=== PATIENT | female | born 1930 | race American Indian/Alaskan Native ===

== ENCOUNTER 2018-09-08 10:20 | Emergency (ER) | payer MEDICARE ==
[2018-09-08] MEDS ORDERED: KEPPRA 1,000 MG/NS 0.75% 100ML 1,000 MG/100 ML BAG IV ONE (10:55)
--- NOTE | 2018-09-08 11:10 | Emergency Department Report ---
HPI - General Chief Complaint: Seizure Time Seen by Provider: 09/08/18 10:49 - HPI HPI: A 88-year-old -[place] female presents to the emergency department from home via EMS after the patient exhibited some seizure-like activity. The patient has a history of dementia, CVA with left-sided deficits, CHF, GERD, hypertension, seizure disorder and hypothyroidism. Family, who is bedside, says that the patient was having some type of convulsions but that she intermittently was talking during it. One of her daughter says that this happened 4 times in a row with only a few seconds in between them. There did not appear to be any postictal period as she was immediately back to baseline with stopped. Patient is on 750 mg of Keppra twice daily but did not have her morning dose because she had not yet eaten breakfast. Patient was last year in late June after she had increased left-sided weakness. The family also says that she has been at [facility] in the past few months for a fall and had a negative CT scan of the head done at that time. She did not take anything and did not receive anything for her symptoms in route prior to arrival. ED Past Medical Hx - Past Medical History Previous Medical History?: Yes Hx Hypertension: Yes Hx CVA: Yes Hx Congestive Heart Failure: Yes Hx GERD: Yes Hx Arthritis: Yes (rheumatoid arthritis) Hx Seizures: Yes Hx Dementia: Yes Additional medical history: Hypothyroidism, stroke, TIA, Alzheimer's disease, CHF, neuropathy of the feet - Surgical History Past Surgical History?: No - Social History Smoking Status: Former Smoker Substance Use Type: None - Medications Home Medications: Home Medications Medication Instructions Recorded Confirmed Last Taken Type Aspirin EC [Aspirin Enteric Coated 325 mg PO QDAY tablet 07/08/18 09/08/18 Unknown Rx TAB] Famotidine [Pepcid] 20 mg PO BID tablet 07/08/18 09/08/18 Unknown Rx levETIRAcetam [Keppra TAB] 750 mg PO BID tablet 07/08/18 09/08/18 Unknown Rx Valsartan 1 tab PO DAILY 09/08/18 09/08/18 Unknown History ED Review of Systems ROS: Stated complaint: SEIZURE Other details as noted in HPI Constitutional: denies: chills, fever Eyes: denies: eye pain, vision change ENT: denies: ear pain, throat pain Respiratory: denies: cough, shortness of breath Cardiovascular: denies: chest pain, palpitations Gastrointestinal: denies: vomiting, diarrhea Genitourinary: denies: dysuria, discharge Musculoskeletal: denies: back pain, arthralgia Skin: denies: rash, lesions Neurological: other (seizure-like activity, convulsions). denies: numbness Physical Exam - Physical Exam Vital Signs: Vital Signs 09/08/18 10:40 Temperature 98.2 F Pulse Rate 58 L Respiratory 17 Rate Blood Pressure 161/62 Blood Pressure 161/62 [Right] O2 Sat by Pulse 96 Oximetry Physical Exam: GENERAL: The patient is well-developed well-nourished. HEENT: Normocephalic. Atraumatic. Patient has moist mucous membranes. EYES: Extraocular motions are intact. Pupils are equal and reactive to light bilaterally. NECK: Supple. Trachea is midline. CHEST/LUNGS: Clear to auscultation. There is no respiratory distress noted. HEART/CARDIOVASCULAR: Regular. There is no tachycardia. There is no obvious murmur. ABDOMEN: Abdomen is soft, nontender. Patient has normal bowel sounds. There is no abdominal distention. SKIN: Skin is warm and dry. NEURO: The patient is awake, alert, and cooperative. The patient has normal speech. Cranial nerves II through XII grossly intact. MUSCULOSKELETAL: There is no tenderness or deformity. There is no evidence of acute injury. ED Course Vital Signs 09/08/18 10:40 Temperature 98.2 F Pulse Rate 58 L Respiratory 17 Rate Blood Pressure 161/62 Blood Pressure 161/62 [Right] O2 Sat by Pulse 96 Oximetry ED Medical Decision Making - Lab Data Result diagrams: 09/08/18 10:55 09/08/18 10:58 - EKG Data -: EKG Interpreted by Nh EKG shows normal: sinus rhythm, axis, intervals, QRS complexes, ST-T waves Rate: bradycardia (55 bpm) - EKG Data When compared to previous EKG there are: no significant change Interpretation: unchanged when compared t (07/12/18) - Radiology Data Radiology results: report reviewed CT HEAD WITHOUT CONTRAST: HISTORY: Seizure. TECHNIQUE: Sequential CT images without contrast. FINDINGS: Images obtained show bilateral prominence of the sulci and ventricles. There are no abnormal intra- or extra-axial blood or fluid collections. There are no focal masses or evidence of mass effect. The zhong white matter differentiation appears within normal limits. Regions of periventricular decreased attenuation are consistent with microangiopathic ischemic disease. The posterior fossa structures including the fourth ventricle, cerebellum, and brainstem appear normal. IMPRESSION: Evidence of atrophy and microangiopathic ischemic disease. No acute intracranial process noted. No significant change since 07/03/18. Transcribed By: TTR Dictated By: SONIYA SUN JR, MD Electronically Authenticated By: SONIYA SUN JR, MD Signed Date/Time: 09/08/18 0034 - Medical Decision Making A 88-year-old female presents to the emergency department from home after she h ad some seizure-like activity and/or convulsions witnessed by her daughter. Since being in the emergency department she has been awake, alert. She does not appear to show any acute focal, motor or sensory deficits in her cranial nerves have been intact. CT scan of the head did not show any bleed, shift, mass, ischemia or any other acute process. Labs have been unremarkable including a CBC, metabolic panel, troponin, urinalysis. Vital signs stable throughout her ED course but she did have some mild hypertension. This was treated with a dose of hydralazine. The patient was also loaded with a gram of Keppra. She was reevaluated multiple times over multiple hours and there is been no further seizure-like activity or any signs of any change in mental status. The patient's daughter has been bedside throughout the ED course and says that the patient is at her baseline mental status. For all these reasons the patient appears safe for discharge home at this time. They've been instructed to follow-up with the primary care physician but to return to the emergency department immediately with any return of any seizure-like activity, worsening of her symptoms, all with any acute distress. - Differential Diagnosis seizure, CVA, TIA, dysrhythmia Critical Care Time: No Critical care attestation.: If time is entered above; I have spent that time in minutes in the direct care of this critically ill patient, excluding procedure time. ED Disposition Clinical Impression: Seizure-like activity HTN (hypertension) Qualifiers: Hypertension type: essential hypertension Qualified Code(s): I10 - Essential (primary) hypertension Disposition: DC-01 TO HOME OR SELFCARE Is pt being admited?: No Condition: Stable Instructions: Hypertension (ED), Recurrent Seizures Adult (ED) Additional Instructions: Please follow-up with your primary care physician in the next few days. Return to the emergency department with any further seizure-like activity, change in mental status, worsening of your symptoms, or with any acute distress. Referrals: CRYSTAL KLEIN MD [Staff Physician] - 2-3 Days Time of Disposition: 16:46
[2018-09-08 11:14] LABS: Hemoglobin 11.1 gm/dl (10.1-14.3); Mean Corpuscular HGB Conc 34 % (30-34); Mean Corpuscular Volume 100 fl (79-97); Platelet Count 205 K/mm3 (140-440); Red Blood Count 3.31 M/mm3 (3.65-5.03); Red Cell Distribution Width 15.5 % (13.2-15.2)
[2018-09-08 12:02] LABS: Alanine Aminotransferase 6 units/L (7-56); Albumin 3.3 g/dL (3.9-5); BUN/Creatinine Ratio 15; Blood Urea Nitrogen 12 mg/dL (7-17); Calcium 9.4 mg/dL (8.4-10.2); Hemolysis Index 9
[2018-09-08 12:17] LABS: Bilirubin,Direct < 0.2 mg/dL (0-0.2)
[2018-09-08] MEDS ORDERED: APRESOLINE IV ONE (12:39)
--- NOTE | 2018-09-08 15:18 | Cat Scan Report ---
CT HEAD WITHOUT CONTRAST: HISTORY: Seizure. TECHNIQUE: Sequential CT images without contrast. FINDINGS: Images obtained show bilateral prominence of the sulci and ventricles. There are no abnormal intra- or extra-axial blood or fluid collections. There are no focal masses or evidence of mass effect. The zhong white matter differentiation appears within normal limits. Regions of periventricular decreased attenuation are consistent with microangiopathic ischemic disease. The posterior fossa structures including the fourth ventricle, cerebellum, and brainstem appear normal. IMPRESSION: Evidence of atrophy and microangiopathic ischemic disease. No acute intracranial process noted. No significant change since 07/03/18.
[2018-09-08 15:42] LABS: Bilirubin,Urine NEG (Negative); Blood,Urine NEG (Negative); Color,Urine Yellow (Yellow); Protein,Urine <15 mg/dL mg/dL (Negative); Urobilinogen,Urine < 2.0 mg/dL (<2.0)
[2018-09-08 16:32] VITALS: BP 166/71
== END 2018-09-08 17:01 | disposition home or self-care (01) ==
LOC: ED 10:20
DX: G40.909 Epilepsy, unspecified, not intractable, without status epilepticus (principal); I11.0 Hypertensive heart disease with heart failure; I50.9 Heart failure, unspecified; K21.9 Gastro-esophageal reflux disease without esophagitis; M06.9 Rheumatoid arthritis, unspecified; F03.90 Unspecified dementia, unspecified severity, without behavioral disturbance, psychotic disturbance, mood disturbance, and anxiety; E03.9 Hypothyroidism, unspecified; F02.80 Dementia in other diseases classified elsewhere, unspecified severity, without behavioral disturbance, psychotic disturbance, mood disturbance, and anxiety; Z86.73 Personal history of transient ischemic attack (TIA), and cerebral infarction without residual deficits; Z87.891 Personal history of nicotine dependence
CPT/HCPCS: 36415; 70450; 80048; 80076; 81001; 82550; 84443; 84484; 85027; 93005; 93010; 96374; 96375; 99285; J0360; J1953

== ENCOUNTER 2019-01-03 15:50 | Emergency (ER) | payer MEDICARE ==
--- NOTE | 2019-01-03 17:45 | Emergency Department Report ---
ED General Adult HPI - General Chief complaint: Weakness Stated complaint: WEAKNESS Time Seen by Provider: 01/03/19 17:15 Source: patient, family, EMS (ems notes not available at time of chart dictation), RN notes reviewed, old records reviewed Mode of arrival: Stretcher Limitations: Physical Limitation - History of Present Illness Initial comments: This is an 88-year-old female. The patient is not known to this provider previously. Her primary care doctor is Dr. Ley. Past medical history includes stroke, dementia, arthritis, congestive heart failure, had echocardiogram in 2018 which demonstrated ejection fraction 45-50%, GERD, hypertension, seizures, hypothyroidism The patient is sent to the emergency room with her family, by her primary care doctor for evaluation. The patient's only complaint is plantar foot pain. She is not able to describe the nature of the pain. She indicates increases with palpation and decreases with rest. Patient also complains of headache, but is not able to describe the location of the headache, described a qualitative nature of the headache, or describe exacerbating or relieving factors. She denies other complaints. Family endorses no articulated change in visual acuity, the patient has made no complaints about pain in her jaw. Histories from early obtained from the patient's family. The patient lives at home with her family, and has a walker, wheelchair, and family typically assists with activities of daily living. Family endorse a gradual decline in functional status over the past day or so. Patient typically able to stand with assistance, and recently has not been able to stand without assistance. She's not been able to turn herself around in bed. Family typically assist the patient with bathing, and dressing the patient. No fevers, nausea vomiting, there is a positive cough, there is chronic lower extremity swelling, patient's medications have not been changed recently. No recent fevers. Patient's family reports this is similar to prior episodes of deconditioning, and they report the patient's symptoms have improved in the past with aggressive physical therapy. No recent medication changes. The aforementioned symptoms are intermittent, painless, did not radiate anywhere, and reportedly did not have exacerbating or relieving factors. -: Gradual, days(s) Quality: other Consistency: other Improves with: other Worsens with: other - Related Data Home Medications Medication Instructions Recorded Confirmed Last Taken Valsartan 1 tab PO DAILY 09/08/18 09/08/18 Unknown Previous Rx's Medication Instructions Recorded Last Taken Type Aspirin EC 325 mg PO QDAY tablet 07/08/18 Unknown Rx Famotidine [Pepcid] 20 mg PO BID tablet 07/08/18 Unknown Rx levETIRAcetam [Keppra TAB] 750 mg PO BID tablet 07/08/18 Unknown Rx levoFLOXacin [Levaquin TAB] 500 mg PO QDAY #7 tablet 01/03/19 Unknown Rx Allergies Allergy/AdvReac Type Severity Reaction Status Date / Time No Known Allergies Allergy Verified 02/10/18 01:14 ED Review of Systems ROS: Stated complaint: WEAKNESS Other details as noted in HPI Comment: per family Constitutional: malaise, weakness. denies: fever Eyes: denies: eye discharge ENT: congestion Respiratory: cough Cardiovascular: edema. denies: syncope Gastrointestinal: denies: nausea, vomiting Genitourinary: denies: dysuria Musculoskeletal: other (chronic lower extremity swelling) Skin: denies: lesions Neurological: weakness (acute on chronic) Hematological/Lymphatic: denies: easy bleeding ED Past Medical Hx - Past Medical History Hx Hypertension: Yes Hx CVA: Yes Hx Congestive Heart Failure: Yes Hx GERD: Yes Hx Arthritis: Yes (rheumatoid arthritis) Hx Seizures: Yes Hx Dementia: Yes Additional medical history: Hypothyroidism, stroke, TIA, Alzheimer's disease, CHF, neuropathy of the feet - Social History Smoking Status: Former Smoker Substance Use Type: None - Medications Home Medications: Home Medications Medication Instructions Recorded Confirmed Last Taken Type Aspirin EC 325 mg PO QDAY tablet 07/08/18 09/08/18 Unknown Rx Famotidine [Pepcid] 20 mg PO BID tablet 07/08/18 09/08/18 Unknown Rx levETIRAcetam [Keppra TAB] 750 mg PO BID tablet 07/08/18 09/08/18 Unknown Rx Valsartan 1 tab PO DAILY 09/08/18 09/08/18 Unknown History levoFLOXacin [Levaquin TAB] 500 mg PO QDAY #7 tablet 01/03/19 Unknown Rx ED Physical Exam - General Limitations: Other (patient is demented. Patient is a poor historian. Patient follows commands. Patient answers yes no questions.) General appearance: alert, in no apparent distress - Head Head exam: Present: atraumatic, normocephalic - Eye Eye exam: Present: normal appearance (bilateral arcus senilis noted), EOMI, other (visual acuity intact to finger counting, color perception, reading at a close distance). Absent: nystagmus, periorbital tenderness (there is no tem poral tenderness) - ENT ENT exam: Present: normal exam, normal orophraynx, mucous membranes moist, TM's normal bilaterally, normal external ear exam, other (poor dentition is noted) - Neck Neck exam: Present: normal inspection, full ROM. Absent: tenderness, meningismus - Respiratory Respiratory exam: Present: normal lung sounds bilaterally, decreased breath sounds. Absent: respiratory distress, rales, rhonchi, stridor - Cardiovascular Cardiovascular Exam: Present: regular rate, normal rhythm, normal heart sounds. Absent: bradycardia, tachycardia, irregular rhythm, systolic murmur, diastolic murmur, rubs, gallop - GI/Abdominal GI/Abdominal exam: Present: soft, normal bowel sounds. Absent: distended, tenderness, guarding, rigid, pulsatile mass - Extremities Exam Extremities exam: Present: normal inspection, full ROM, tenderness (there is minimal right-sided plantar foot tenderness. There is no redness, pus or streaking.), pedal edema, other (2+ pulses noted in the bilateral upper, lower extremities. Compartments soft. No long bony tenderness. The pelvis is stable.). Absent: calf tenderness - Back Exam Back exam: Present: normal inspection, full ROM. Absent: tenderness, CVA tenderness (R), CVA tenderness (L), paraspinal tenderness, vertebral tenderness - Neurological Exam Neurological exam: Present: alert (the patient is alert to name. She recognizes family. She follows commands. She is asking to eat.), other (Extraocular movements intact. Tongue midline. No facial droop. Facial sensation intact to light touch in the V1, V2, V3 distribution bilaterally. 5 and 5 strength in 4 extremities.. Sensation is intact to light touch in 4 extremities.). Absent: motor sensory deficit - Psychiatric Psychiatric exam: Present: normal affect, normal mood - Skin Skin exam: Present: warm, dry, intact, normal color. Absent: rash ED Course Vital Signs 01/03/19 01/03/19 01/03/19 17:56 18:39 19:05 Temperature 98.3 F 98.1 F Pulse Rate 63 75 Respiratory 18 18 18 Rate Blood Pressure 150/69 153/66 [Left] O2 Sat by Pulse 100 98 98 Oximetry - Reevaluation(s) Reevaluation #1: 01/03/19 18:25 Differential diagnosis, including but not limited to: Pneumonia, congestive heart failure, hypothyroidism, electrolyte derangement, dementia, physical debility Assessment and plan: 88-year-old elderly female, multiple chronic medical conditions, appears quite comfortable, not tachycardic, not hypoxic, saturating at 97% on room air, lungs sounds are clear, as middle lower extremity edema, and appears to be quite well. Her physical exam is unremarkable. We will obtain CT scan of the brain, chest, screening laboratory studies and urinalysis. Case management consult has been requested. Extensive discussion had with patient's family, to discuss goals of care The case management consult is ordered, the patient has had home physical therapy in the past. So far, she is resting comfortable, and in no acute distress. Reevaluation #2: 01/03/19 19:44 Patient was observed here for approximately 4 hours, without clinical decompensation. There is no hypoxia. There is no tachycardia. Objective laboratory testing thus far unremarkable. Urinalysis suggestive of urinary tract infection. We have discussed these findings with the patient's daughter who verbalizes understanding. Awaiting CT scan brain, chest interpretation. Reevaluation #3: 01/03/19 19:57 CT scan of the chest suggests emphysematous changes. Do not clinically suspect pneumonia at this time. Suspect atelectasis as most likely etiology for CT scan findings. Discussed CT scan findings with patient's daughter, who has verbalized understanding. Patient will be covered empirically with levofloxacin, for both urinary and pulmonary pathogens. CT scan of the brain is negative for acute disease. Copies of CT scan reports, laboratory studies are handed to the patient's daughter, and she can follow-up with her outpatient primary care doctor. Patient may follow-up with her outpatient primary care doctor, and an outpatient wind science and planning, for formal pulmonary function testing, if family so desires. 01/03/19 20:01 ED Medical Decision Making - Lab Data Result diagrams: 01/03/19 18:40 01/03/19 18:55 Vital Signs 01/03/19 17:56 Respiratory 18 Rate O2 Sat by Pulse 100 Oximetry Vital Signs 01/03/19 01/03/19 17:56 18:39 Temperature 98.3 F Pulse Rate 63 Respiratory 18 18 Rate Blood Pressure 150/69 [Left] O2 Sat by Pulse 100 98 Oximetry Labs 01/03/19 17:51 Urine Color Yellow Urine Turbidity Cloudy Urine pH 5.0 Ur Specific [place] 1.016 Urine Protein <15 mg/dl Urine Glucose (UA) Neg Urine Ketones Tr Urine Blood Neg Urine Nitrite Pos Urine Bilirubin Neg Urine Urobilinogen < 2.0 Ur Leukocyte Esterase Sm Urine WBC (Auto) 6.0 Urine RBC (Auto) 2.0 U Epithel Cells (Auto) 1.0 Urine Bacteria (Auto) 2+ Urine Mucus Few - EKG Data -: EKG Interpreted by [place] - EKG Data 01/03/19 18:26 This is a normal sinus rhythm, 65 bpm, low voltage, QTC within normal limits, MS interval appears to be prolonged, there is low voltage in the lateral leads, this is an normal EKG, there is no endorsement of chest pain, this EKG is not consistent with ST elevation myocardial infarction. The EKG today appears to be unchanged from prior EKG from 2018. - Radiology Data Radiology results: report reviewed, image reviewed Print Report Referring Physician: PHIL LUZ Patient Name: ROXANA HADLEY Date of : 1930 Sex: Female Report Date: 2019-01-03 Report Status: Finalized Findings [facility] [address] [place] [address] XRay Report Signed Patient: ROXANA HADLEY MR#: [id number] : 1930 Acct:[id number] Age/Sex: 88 / F ADM Date: 01/03/19 Loc: ED Attending Dr: Ordering Physician: PHIL LUZ MD Date of Service: 01/03/19 Procedure(s): XR chest 1V ap Accession Number(s): [id number] cc: PHIL LUZ MD Fluoro Time In Minutes: PROCEDURE: Chest. TECHNIQUE: Portable AP view. HISTORY: Cough. COMPARISONS: Chest 07/03/2018. Dictation not available. FINDINGS: The radiograph is slightly underpenetrated. The heart size is borderline. There is mild tortuosity of the thoracic aorta. The lungs are clear and well expanded. There are no pleural effusions. The soft tissues and regional skeleton are unremarkable. IMPRESSION: No evidence of acute disease. This document is electronically signed by Phil Javier MD., January 03 2019 07:09:53 PM ET Transcribed By: MRM Dictated By: PHIL JAVIER MD Electronically Authenticated By: PHIL JAVIER MD Signed Date/Time: 01/03/191911 Print Report Referring Physician: PHIL LUZ Patient Name: ROXANA HADLEY Date of : 1930 Sex: Female Report Date: 2019-01-03 Report Status: Finalized Findings [facility] [address] [place] [address] Cat Scan Report Signed Patient: ROXANA HADLEY MR#: [id number] : 1930 Acct:[id number] Age/Sex: 88 / F ADM Date: 01/03/19 Loc: ED Attending Dr: Ordering Physician: PHIL LUZ MD Date of Service: 01/03/19 Procedure(s): CT chest wo con Accession Number(s): [id number] cc: PHIL LUZ MD PROCEDURE: CT chest without contrast. TECHNIQUE: Computerized axial tomography of the chest was performed without contrast material. This study is performed without intravenous contrast and the sensitivity for pathology, including neoplasms, adenopathy, abscess, pulmonary embolism and aortic dissection, is reduced. CT DOSE LENGTH PRODUCT: 1167.3 mGycm HISTORY: cough ? pleural effusion COMPARISONS: None. FINDINGS: The trachea and central bronchi appear normal. There are numerous small cystic changes in both upper lobes. There are also some cystic changes in both lower lobes. This could indicate early emphysema. There is minimal groundglass opacity in the posterior portions of both lower lobes. This is nonspecific. The lungs are otherwise clear. There are no pleural effusions. The thoracic aorta has a normal caliber. There is atherosclerotic calcification scattered in the thoracic aorta. The central pulmonary arteries have normal calibers. There is no mediastinal adenopathy. The heart size is normal. The adrenal glands are not enlarged. The thoracic skeleton appears intact. IMPRESSION: Probable early emphysema. Mild nonspecific groundglass opacity in the dependent portions of both lower lobes. No significant abnormality identified. This document is electronically signed by Phil Javier MD., January 03 2019 07:49:16 PM ET Transcribed By: MRM Dictated By: PHIL JAVIER MD Electronically Authenticated By: PHIL JAVIER MD Signed Date/Time: 01/03/191950 Critical care attestation.: If time is entered above; I have spent that time in minutes in the direct care of this critically ill patient, excluding procedure time. ED Disposition Clinical Impression: UTI (urinary tract infection), Debility, Dementia Disposition: -01 TO HOME OR SELFCARE Is pt being admited?: No Does the pt Need Aspirin: No Condition: Stable Additional Instructions: Cultures were sent today, and results will be available in the next 3-5 days. Please have your primary care doctor contact the medical records department to obtain culture results. Continue outpatient medications, and take the antibiotic as directed for presumed urinary tract infection. CT scan of the chest suggested early emphysema, but this test does not make a formal diagnosis of emphysema or bronchitis. Patient is typically require formal pulmonary function testing, which can be obtained through an outpatient primary care doctor or a help desk specialist, within the next 3-4 weeks, if the family so desires. Tests today demonstrated nonspecific incidental findings, which should be followed up by her primary care doctor within the next 7-10 days. Please have your primary care doctor contact medical records department to obtain incidental test results. Please follow up in 2-3 days for repeat checkup/evaluation. Please return to the emergency room right away with new, worse or different symptoms, or symptoms not present on the initial emergency room evaluation. Prescriptions: levoFLOXacin [Levaquin TAB] 500 mg PO QDAY #7 tablet Referrals: PRISCILA LEY JR, MD [Staff Physician] - 3-5 Days JUSTUS FRAZIER MD [Staff Physician] - as needed (pulmonary doctor)
[2019-01-03 18:30] LABS: Bacteria,Urine 2+ /HPF (Negative); Bilirubin,Urine NEG (Negative); Blood,Urine NEG (Negative); Color,Urine Yellow (Yellow); Mucus,Urine FEW /HPF; Protein,Urine <15 mg/dL mg/dL (Negative); Urobilinogen,Urine < 2.0 mg/dL (<2.0)
[2019-01-03 18:54] LABS: Hematocrit 32.5 % (30.3-42.9); Hemoglobin 10.8 gm/dl (10.1-14.3); Mean Corpuscular HGB Conc 33 % (30-34); Mean Corpuscular Volume 102 fl (79-97); Platelet Count 177 K/mm3 (140-440); Red Blood Count 3.18 M/mm3 (3.65-5.03); Red Cell Distribution Width 14.9 % (13.2-15.2)
--- NOTE | 2019-01-03 19:12 | XRay Report ---
PROCEDURE: Chest. TECHNIQUE: Portable AP view. HISTORY: Cough. COMPARISONS: Chest 07/03/2018. Dictation not available. FINDINGS: The radiograph is slightly underpenetrated. The heart size is borderline. There is mild tortuosity of the thoracic aorta. The lungs are clear and well expanded. There are no pleural effusions. The soft tissues and regional skeleton are unremarkable. IMPRESSION: No evidence of acute disease. This document is electronically signed by Phil Barajas MD., January 03 2019 07:09:53 PM ET
[2019-01-03 19:23] LABS: Alanine Aminotransferase 8 units/L (7-56); Albumin 3.5 g/dL (3.9-5); BUN/Creatinine Ratio 17; Blood Urea Nitrogen 15 mg/dL (7-17); Calcium 9.1 mg/dL (8.4-10.2); Hemolysis Index 19
[2019-01-03 19:26] LABS: Bilirubin,Direct < 0.2 mg/dL (0-0.2)
--- NOTE | 2019-01-03 19:51 | Cat Scan Report ---
PROCEDURE: CT chest without contrast. TECHNIQUE: Computerized axial tomography of the chest was performed without contrast material. This study is performed without intravenous contrast and the sensitivity for pathology, including neoplasm s, adenopathy, abscess, pulmonary embolism and aortic dissection, is reduced. CT DOSE LENGTH PRODUCT: 1167.3 mGycm HISTORY: cough ? pleural effusion COMPARISONS: None. FINDINGS: The trachea and central bronchi appear normal. There are numerous small cystic changes in both upper lobes. There are also some cystic changes in both lower lobes. This could indicate early emphysema. T here is minimal groundglass opacity in the posterior portions of both lower lobes. This is nonspecifi c. The lungs are otherwise clear. There are no pleural effusions. The thoracic aorta has a normal chastity iber. There is atherosclerotic calcification scattered in the thoracic aorta. The central pulmonary a rteries have normal calibers. There is no mediastinal adenopathy. The heart size is normal. The adren al glands are not enlarged. The thoracic skeleton appears intact. IMPRESSION: Probable early emphysema. Mild nonspecific groundglass opacity in the dependent portions of both lower lobes. No significant abnormality identified. This document is electronically signed by Phil Barajas MD., January 03 2019 07:49:16 PM ET
--- NOTE | 2019-01-03 20:00 | Cat Scan Report ---
PROCEDURE: CT head without contrast. TECHNIQUE: Computerized tomography of the head was performed without contrast material. CT DOSE LENGTH PRODUCT: 1048.4 mGycm HISTORY: Weakness, headache. COMPARISONS: CT head 09/08/2018. Dictation not available. FINDINGS: There is mild cerebral atrophy. There is some subtle diminished attenuation in the medial portion of the right occipital lobe. This may represent an old infarct. There is evidence of mild chronic ischem ic white matter disease. There are no signs of acute infarction. There are no mass lesions. There is no intracranial hemorrhage. The calvarium appears intact. The mastoid air cells and paranasal sinuses are well aerated. IMPRESSION: Chronic ischemic changes as described consistent with age. This document is electronically signed by Phil Barajas MD., January 03 2019 07:58:14 PM ET
[2019-01-03] MEDS ORDERED: LEVAQUIN PO ONE (20:02)
[2019-01-03 22:24] VITALS: BP 134/95
== END 2019-01-03 21:00 | disposition home or self-care (01) ==
LOC: ED 15:50
DX: N39.0 Urinary tract infection, site not specified (principal); R53.81 Other malaise; F03.90 Unspecified dementia, unspecified severity, without behavioral disturbance, psychotic disturbance, mood disturbance, and anxiety; I11.0 Hypertensive heart disease with heart failure; I50.9 Heart failure, unspecified; E03.9 Hypothyroidism, unspecified; K21.9 Gastro-esophageal reflux disease without esophagitis; M06.9 Rheumatoid arthritis, unspecified; Z79.82 Long term (current) use of aspirin; Z86.73 Personal history of transient ischemic attack (TIA), and cerebral infarction without residual deficits; Z87.891 Personal history of nicotine dependence
CPT/HCPCS: 36415; 70450; 71045; 71250; 80048; 80076; 81001; 82550; 83735; 84443; 85027; 87076; 87086; 87186; 93005; 93010; 99285; G0480; 51701; 80320

== ENCOUNTER 2019-01-21 07:18 | Emergency (ER) | payer MEDICARE ==
--- NOTE | 2019-01-21 08:39 | Emergency Department Report ---
ED General Adult HPI - General Chief complaint: Fall Stated complaint: LACERATION ON HEAD Time Seen by Provider: 01/21/19 08:23 Source: patient, EMS Mode of arrival: Stretcher Limitations: Other - History of Present Illness Initial comments: 89-year-old female with dementia. She thought she was going to get chicken out of the stove her family states. She tripped and fell and hit her forehead. Family did not witness the fall. However, think that she had a seizure. She was not apparently postictal at the time they found her. They don't think she had a loss of consciousness. They are not referring any antecedent illness. Patient denies neck pain. She states she has a headache related to her forehead injury. -: minutes(s) Location: head Radiation: non-radiation Severity scale (0 -10): 3 Quality: aching Consistency: intermittent Improves with: none Worsens with: none Associated Symptoms: denies other symptoms Treatments Prior to Arrival: none - Related Data Home Medications Medication Instructions Recorded Confirmed Last Taken Valsartan 1 tab PO DAILY 09/08/18 01/21/19 01/20/19 Previous Rx's Medication Instructions Recorded Last Taken Type Aspirin EC 325 mg PO QDAY tablet 07/08/18 01/20/19 Rx Famotidine [Pepcid] 20 mg PO BID tablet 07/08/18 01/20/19 Rx Allergies Allergy/AdvReac Type Severity Reaction Status Date / Time No Known Allergies Allergy Verified 02/10/18 01:14 ED Review of Systems ROS: Stated complaint: LACERATION ON HEAD Other details as noted in HPI Comment: Unobtainable due to pts medical conditions (but does deny neck pain.) ED Past Medical Hx - Past Medical History Previous Medical History?: Yes Hx Hypertension: Yes Hx CVA: Yes Hx Congestive Heart Failure: Yes Hx GERD: Yes Hx Arthritis: Yes (rheumatoid arthritis) Hx Seizures: Yes Hx Dementia: Yes Additional medical history: Hypothyroidism, stroke, TIA, Alzheimer's disease, CHF, neuropathy of the feet - Social History Smoking Status: Former Smoker Substance Use Type: Prescribed - Medications Home Medications: Home Medications Medication Instructions Recorded Confirmed Last Taken Type Aspirin EC 325 mg PO QDAY tablet 07/08/18 01/21/19 01/20/19 Rx Famotidine [Pepcid] 20 mg PO BID tablet 07/08/18 01/21/1901/20/19 Rx Valsartan 1 tab PO DAILY 09/08/18 01/21/19 01/20/19 History ED Physical Exam - General Limitations: Other General appearance: alert (dementia) - Head Head exam: Present: other (large multipartite stellate laceration of the left forehead, length less than 10 cm). Absent: atraumatic (large laceration perhaps 6 cm forehead into subcutaneous. No active bleeding.) - Eye Eye exam: Absent: scleral icterus - ENT ENT exam: Present: normal exam (appears unremarkable) - Neck Neck exam: Present: normal inspection. Absent: tenderness, meningismus - Respiratory Respiratory exam: Present: normal lung sounds bilaterally. Absent: respiratory distress - Cardiovascular Cardiovascular Exam: Present: regular rate, normal rhythm. Absent: systolic murmur, diastolic murmur, rubs, gallop - GI/Abdominal GI/Abdominal exam: Present: soft, normal bowel sounds. Absent: distended, tenderness, guarding - Extremities Exam Extremities exam: Present: normal inspection - Neurological Exam Neurological exam: Present: CN II-XII intact, motor sensory deficit (possibly some 4+ out of 5 strength on the right) - Psychiatric Psychiatric exam: Present: anxious, flat affect - Skin Skin exam: Present: warm, dry, other (laceration as above) ED Course Vital Signs 01/21/19 01/21/19 01/21/19 07:33 07:45 08:15 Temperature 98.4 F Pulse Rate 69 61 63 Respiratory 18 15 16 Rate Blood Pressure 162/80 161/83 Blood Pressure 148/84 [Left] O2 Sat by Pulse 96 97 97 Oximetry 01/21/19 01/21/19 01/21/19 08:26 08:31 09:00 Temperature Pulse Rate 62 65 66 Respiratory 15 18 Rate Blood Pressure 161/83 174/83 Blood Pressure [Left] O2 Sat by Pulse 97 95 Oximetry 01/21/19 01/21/19 01/21/19 09:15 09:31 09:41 Temperature 98.2 F Pulse Rate 74 63 109 H Respiratory 10 L 13 18 Rate Blood Pressure 161/83 161/83 Blood Pressure 161/83 [Left] O2 Sat by Pulse 73 L 96 97 Oximetry 01/21/19 01/21/19 01/21/19 10:00 10:04 10:15 Temperature Pulse Rate 60 Respiratory 18 15 Rate Blood Pressure 161/83 180/66 Blood Pressure [Left] O2 Sat by Pulse 97 96 Oximetry 01/21/19 01/21/19 01/21/19 10:31 10:45 11:00 Temperature Pulse Rate 65 61 63 Respiratory 8 L 11 L 8 L Rate Blood Pressure 180/66 174/83 160/80 Blood Pressure [Left] O2 Sat by Pulse 99 97 98 Oximetry 01/21/19 01/21/19 01/21/19 11:15 11:31 11:53 Temperature 98.7 F Pulse Rate 66 67 60 Respiratory 12 13 18 Rate Blood Pressure 180/66 180/66 Blood Pressure 180/66 [Left] O2 Sat by Pulse 99 99 95 Oximetry - Reevaluation(s) Reevaluation #1: Patient remained entirely lucid during the procedure and thereafter. She is neurologically intact. She is appropriate for outpatient disposition. I will check an EKG prior to discharge. 01/21/19 11:51 Reevaluation #2: Patient eating well without complaints. She is appropriate for outpatient disposition. 01/21/19 12:27 - Laceration /Wound Repair Left Face Wound Location: face Wound Length (cm): 8 Wound's Depth, Shape: into muscle, stellate, contused tissue Wound Explored: no foreign body removed Irrigated w/ Saline (ccs): 50 Betadine Prep?: Yes Anesthesia: Lidocaine w/ Epi Volume Anesthetic (ccs): 8 Wound Debrided: extensive Wound Repaired With: sutures Suture Size/Type: 5:0 Number of Sutures: 10 Layer Closure?: Yes Deep Layer Suture Size/Type: 4:0 Number Deep Layer Sutures: 4 Progress: Extensive revision of a stellate laceration. Achieved good linear closure along the lines of the forehead. Procedure well tolerated. ED Medical Decision Making - Lab Data Result diagrams: 01/21/19 09:21 01/21/19 09:21 Laboratory Results - last 24 hr 01/21/19 01/21/19 09:21 09:21 WBC 7.6 RBC 3.95 Hgb 13.5 Hct 42.3 MCV 107 H MCH 34 H MCHC 32 RDW 15.9 H Plt Count 185 Lymph % (Auto) Reservation Agent [place] % (Auto) Reservation Agent Eos % (Auto) Reservation Agent Baso % (Auto) Reservation Agent Lymph # Reservation Agent [place] # Reservation Agent Eos # Reservation Agent Baso # Reservation Agent Seg Neutrophils % Reservation Agent Seg Neutrophils # Reservation Agent Sodium 139 Potassium 4.6 Chloride 103.1 Carbon Dioxide 23 Anion Gap 18 BUN 15 Creatinine 0.8 Estimated GFR > 60 BUN/Creatinine Ratio 19 Glucose 81 Calcium 9.7 - EKG Data -: EKG Interpreted by Me EKG shows normal: sinus rhythm, axis, intervals, QRS complexes, ST-T waves Rate: bradycardia (borderline 57) - EKG Data Interpretation: no acute changes - Radiology Data Radiology results: report reviewed Acute intracranial or cervical spine process Critical care attestation.: If time is entered above; I have spent that time in minutes in the direct care of this critically ill patient, excluding procedure time. ED Disposition Clinical Impression: Status post repair of complex wound Forehead laceration Qualifiers: Encounter type: initial encounter Qualified Code(s): S01.81XA - Laceration without foreign body of other part of head, initial encounter Fall Qualifiers: Encounter type: initial encounter Qualified Code(s): W19.XXXA - Unspecified fall, initial encounter Disposition: TO HOME OR SELFCARE Is pt being admited?: No Does the pt Need Aspirin: No Condition: Stable Instructions: Suture Care (ED), Laceration (ED), Minor Head Injury (ED), Fall Prevention (ED) Additional Instructions: Follow-up with Dr. Ley on Wednesday. Referrals: RAYSA PHILLIPS MD [Primary Care Provider] - 3-5 Days PRISCILA LEY JR, MD [Staff Physician] - 2-3 Days Time of Disposition: 12:29
[2019-01-21] MEDS ORDERED: XYLOCAINE 1%/ EPI 1:100,000 INFILTRATI ONE ×2 (10:07→11:15)
[2019-01-21] MEDS ORDERED: NACL 0.9% 500 ML IR ONE (10:08)
[2019-01-21 10:13] LABS: Hematocrit 42.3 % (30.3-42.9); Hemoglobin 13.5 gm/dl (10.1-14.3); Mean Corpuscular HGB Conc 32 % (30-34); Mean Corpuscular Volume 107 fl (79-97); Platelet Count 185 K/mm3 (140-440); Red Blood Count 3.95 M/mm3 (3.65-5.03); Red Cell Distribution Width 15.9 % (13.2-15.2)
[2019-01-21 10:23] LABS: BUN/Creatinine Ratio 19; Blood Urea Nitrogen 15 mg/dL (7-17); Calcium 9.7 mg/dL (8.4-10.2); Hemolysis Index 40
--- NOTE | 2019-01-21 10:24 | Cat Scan Report ---
CT head without contrast INDICATION : Headache. Left-sided headache. Injury. TECHNIQUE: Axial imaging performed from the skull apex through the skull base without the use of con trast. All CT examinations performed at this facility utilize dose modulation, iterative reconstruct ion or weight-based dosing, when appropriate, to reduce radiation dose to as low as reasonably achiev able. COMPARISON: None FINDINGS: No acute intracranial hemorrhage or parenchymal abnormality. Mild diffuse cerebral atrophy . Ventricles are normal in size and appear symmetric. There is a prominent laceration along the lef t frontal convexity of the forehead above the left orbit. No acute osseous abnormality. Sinuses and mastoid air cells are clear. IMPRESSION: No acute intracranial abnormality. Large left frontal convexity laceration just above the left orbit. No underlying fracture. Signer Name: Cesar Guillaume MD Signed: 01/21/2019 10:20 AM Workstation Name: [id number]
--- NOTE | 2019-01-21 10:25 | Cat Scan Report ---
CT cervical spine without contrast INDICATION: Head injury AMS/Dementia. Neck pain following injury TECHNIQUE: Axial imaging performed through the cervical spine without the use of contrast. Sagittal and coronal reconstructed images were also reviewed. All CT scans at this location are performed us ing CT dose reduction for ALARA by means of automated exposure control. COMPARISON: None FINDINGS: Alignment: Spinal alignment is normal. Bones: There is no acute osseous abnormality. Mild multilevel discogenic DJD is present. Diffuse o steopenia Soft tissues: No acute or significant incidental soft tissue abnormality. IMPRESSION: No fracture or subluxation of the cervical spine. Signer Name: Cesar Guillaume MD Signed: 01/21/2019 10:21 AM Workstation Name: [id number]
[2019-01-21] MEDS ORDERED: NACL 0.9% IR ONE (11:15)
[2019-01-21 12:44] VITALS: BP 175/79
== END 2019-01-21 12:44 | disposition home or self-care (01) ==
LOC: ED 07:18
DX: S01.81XA Laceration without foreign body of other part of head, initial encounter (principal); I11.0 Hypertensive heart disease with heart failure; I50.9 Heart failure, unspecified; K21.0 Gastro-esophageal reflux disease with esophagitis; M19.90 Unspecified osteoarthritis, unspecified site; E03.9 Hypothyroidism, unspecified; G57.90 Unspecified mononeuropathy of unspecified lower limb; G30.9 Alzheimer's disease, unspecified; F02.80 Dementia in other diseases classified elsewhere, unspecified severity, without behavioral disturbance, psychotic disturbance, mood disturbance, and anxiety; Z86.73 Personal history of transient ischemic attack (TIA), and cerebral infarction without residual deficits; W01.0XXA Fall on same level from slipping, tripping and stumbling without subsequent striking against object, initial encounter; Y93.89 Activity, other specified; Y92.89 Other specified places as the place of occurrence of the external cause; Y99.8 Other external cause status
CPT/HCPCS: 36415; 70450; 72125; 80048; 85025; 93005; 93010; 99284